=== PATIENT | female | born 1965 | race African-American/Black ===

== ENCOUNTER 2017-09-25 12:17 | Emergency (ER) | payer BC ==
[2017-09-25 12:22] VITALS: BP 138/77; BMI 31.0
--- NOTE | 2017-09-25 13:02 | DR.GENAD ---
HPI - PCP Primary Care Physician: nfd - Complaint/Symptoms Chief Complaint Doctors Comments: Patient presents with complaint of swelling of the right lower extremity of two days durations. She denies recent illness or trauma. Chief Complaint:: Patient c/o swelling to lower ext and feet x2 days. 2+ pitting edema noted to lower ext - Source History Provided: Patient - Mode of Arrival Mode of Arrival: Ambulatory - Timing Onset of Chief Complaint: 09/23/17 PMH - PMH Past Medical History: No Past Surgical History: No - Family History History of Family Medical Conditions: Yes Family Medical History: Cancer, Heart Failure - Social History Does patient currently use any type of tobacco product: No Have you used tobacco products in the last 12 months: No Type of Tobacco Use: None Does any household member use tobacco: No Alcohol Use: None Do you use any recreational Drugs:: No Lives With: Alone Lives Where: Home - infectious screening In the last 2 months have you had wt loss of >10#?: NO Have you had fever, night sweats or hemotysis?: No Have you traveled outside the country in the last 6 months?: No Isolation: Standard ROS - Review of Systems Eyes: No Symptoms Reported ENTM: No Symptoms Reported Respiratoy: No Symptoms Reported Cardiovascular: No Symptoms Reported Gastrointestinal/Abdominal: No Symptoms Reported, Abdominal Pain Neurological: No Symptoms Reported Musculoskeletal: No Symptoms Reported Integumentary: No Symptoms Reported Hematologic/Lymphatic: No Symptoms Reported Endocrine: No Symptoms Reported Psychiatric: No Symptoms Reported All Other Systems: Reviewed and Negative PE - Vital Signs Vitals: Temperature 98.1 F Pulse Rate 84 Respiratory Rate 19 Blood Pressure 138/77 O2 Sat by Pulse Oximetry 99 - General Limitations: No Limitations General Appearance: Alert - Head Head Exam: Normal Inspection, Atraumatic - Eyes Eye exam: Normal Appearance, PERRL, EOMI - ENT ENT Exam: Normal Exam External Ear Exam: Normal External Inspection TM/Canal Exam: Bilateral Normal Nose Exam: Normal Nose Exam Mouth Exam: Normal Inspection Throat Exam: Normal Inspection - Neck Neck Exam: Normal Inspection - Chest Chest Inspection: Normal Inspection - Respiratory Respiratory Exam: Normal Lung Sounds Bilat Respiratory Exam: Bilateral Clear to Auscultation - Cardiovascular Cardiovascular Exam: Regular Rate - Abdominal Exam Abdominal Exam: Normal Inspection Abdominal Tenderness: negative: RUQ, RLQ, LUQ, LLQ, Epigastrium, Suprapubic, Diffuse, Mild, Moderate, Severe, Other - Extremities Extremities Exam: Full ROM, Edema (RLE) - Back Back Exam: Normal Inspection - Neurologic Neurological Exam: Alert, Oriented X3, CN II-XII Intact - Psychiatric Psychiatric Exam: Normal Affect - Skin Skin Exam: Warm, Dry, Intact Course - Reevaluation 1st: Unchanged ROR - Labs Reviewed Laboratory Results Reviewed?: Yes (Elevated D Dimer) Result Diagrams: 09/25/17 13:17 09/25/17 13:17 Laboratory: WBC 8.9 X10^3/uL (3.6-10.0) 09/25/17 13:17 RBC 4.12 X10^6/uL (3.5-5.4) 09/25/17 13:17 Hgb 11.7 g/dL (12.0-16.0) L 09/25/17 13:17 Hct 34.2 % (36.0-47.0) L 09/25/17 13:17 MCV 83.0 fL (80.0-100.0) 09/25/17 13:17 MCH 28.3 pg (27.0-34.0) 09/25/17 13:17 MCHC 34.1 g/dL (33.0-35.0) 09/25/17 13:17 RDW 13.6 % (11.6-16.5) 09/25/17 13:17 Plt Count 274 X10^3/uL (150.0-450.0) 09/25/17 13:17 MPV 9.5 fL (7.4-11.0) 09/25/17 13:17 Neut % (Auto) 56.9 % (42.0-75.0) 09/25/17 13:17 Lymph % (Auto) 25.1 % (21.0-51.0) 09/25/17 13:17 [place] % (Auto) 9.6 % (0.0-13.0) 09/25/17 13:17 Eos % (Auto) 7.3 % (0.9-2.9) H 09/25/17 13:17 Baso % (Auto) 1.1 % (0.2-1.0) H 09/25/17 13:17 Neut # (Auto) 5.1 x10^3/uL (2.2-4.8) H 09/25/17 13:17 Lymph # (Auto) 2.2 X10^3/uL (1.3-2.9) 09/25/17 13:17 [place] # (Auto) 0.9 x10^3/uL (0.3-0.8) H 09/25/17 13:17 Eos # (Auto) 0.7 x10^3/uL (0.0-0.2) H 09/25/17 13:17 Baso # (Auto) 0.1 X10^3/uL (0.0-0.1) 09/25/17 13:17 Absolute Nucleated RBC 0.0 /100WBC 09/25/17 13:17 D-Dimer 1100 ng/mL (0-400) H* 09/25/17 13:17 Sodium 144 mmol/L (136-145) 09/25/17 13:17 Corrected Sodium TNP 09/25/17 13:17 Potassium 4.4 mmol/L (3.5-5.1) 09/25/17 13:17 Chloride 108 mmol/L (98-107) H 09/25/17 13:17 Carbon Dioxide 30.9 mmol/L (21-32) 09/25/17 13:17 BUN 10 mg/dL (7-18) 09/25/17 13:17 Creatinine 0.71 mg/dL (0.55-1.02) 09/25/17 13:17 Est GFR (MDRD) Af Amer > 60 (>60) 09/25/17 13:17 Est GFR (MDRD) Non-Af > 60 (>60) 09/25/17 13:17 Glucose 89 mg/dL (65-99) 09/25/17 13:17 Calcium 8.5 mg/dL (8.5-10.1) 09/25/17 13:17 Corrected Calcium 9.1 mg/dL (8.5-10.1) 09/25/17 13:17 Total Bilirubin 0.50 mg/dL (0.2-1.0) 09/25/17 13:17 AST 16 Units/L (15-37) 09/25/17 13:17 ALT 21 Units/L (12-78) 09/25/17 13:17 Alkaline Phosphatase 89 Units/L (46-116) 09/25/17 13:17 C-Reactive Protein 15.20 mg/L (0-3.0) H 09/25/17 13:17 Total Protein 8.5 g/dL (6.4-8.2) H 09/25/17 13:17 Albumin 3.3 g/dL (3.4-5.0) L 09/25/17 13:17 Globulin 5.2 g/dL (2.5-4.5) H 09/25/17 13:17 Albumin/Globulin Ratio 0.6 Ratio (1.1-2.1) L 09/25/17 13:17 - XRAY XRAY Interpreted by: Radiologist (Doppler ultrasound of the deep veins ro firht lower extremity. Negative no evidence for deep venous thrombosis in the right lower extremity.) - Diagnosis Discharge Problem: Lymph edema - Discharge Plan Condition: Stable - Follow ups/Referrals Follow ups/Referrals: NFD,None [Primary Care Provider] - 3 days - Instructions
[2017-09-25 13:26] LABS: BASOPHILS # (AUTO) 0.1 X10^3/uL (0.0-0.1); BASOPHILS % (AUTO) 1.1 % (0.2-1.0); EOSINOPHILS # (AUTO) 0.7 x10^3/uL (0.0-0.2); EOSINOPHILS % (AUTO) 7.3 % (0.9-2.9); HEMATOCRIT 34.2 % (36.0-47.0); HEMOGLOBIN 11.7 g/dL (12.0-16.0); LYMPHOCYTES # (AUTO) 2.2 X10^3/uL (1.3-2.9); LYMPHOCYTES % (AUTO) 25.1 % (21.0-51.0); MEAN CORPUSCULAR HEMOGLOBIN 28.3 pg (27.0-34.0); MEAN CORPUSCULAR HGB CONC 34.1 g/dL (33.0-35.0); MEAN PLATELET VOLUME 9.5 fL (7.4-11.0); MONOCYTES # (AUTO) 0.9 x10^3/uL (0.3-0.8); MONOCYTES % (AUTO) 9.6 % (0.0-13.0); NEUTROPHILS # (AUTO) 5.1 x10^3/uL (2.2-4.8); NEUTROPHILS % (AUTO) 56.9 % (42.0-75.0); PLATELET COUNT 274 X10^3/uL (150.0-450.0); RED BLOOD COUNT 4.12 X10^6/uL (3.5-5.4); RED CELL DISTRIBUTION WIDTH 13.6 % (11.6-16.5); WHITE BLOOD COUNT 8.9 X10^3/uL (3.6-10.0)
[2017-09-25 13:39] LABS: ALANINE AMINOTRANSFERASE 21 Units/L (12-78); ALBUMIN 3.3 g/dL (3.4-5.0); ALKALINE PHOSPHATASE 89 Units/L (46-116); ASPARTATE AMINO TRANSFERASE 16 Units/L (15-37); BLOOD UREA NITROGEN 10 mg/dL (7-18); CALCIUM 8.5 mg/dL (8.5-10.1); CARBON DIOXIDE 30.9 mmol/L (21-32); CHLORIDE 108 mmol/L (98-107); COR CA(FOR HYPOALB) 9.1 mg/dL (8.5-10.1); CREATININE 0.71 mg/dL (0.55-1.02); SODIUM 144 mmol/L (136-145); TOTAL PROTEIN 8.5 g/dL (6.4-8.2); eGFR BLACK RACES > 60 (>60); eGFR NON BLACK RACES > 60 (>60)
--- NOTE | 2017-09-25 14:54 | VAS ---
History: Swelling in legs and right foot Study: Doppler ultrasound of the deep veins of the right lower extremity Findings: There is compression and augmentation and good color Doppler blood flow and the deep veins of the right lower extremity, evaluated from the common femoral vein to the tibial vein. Impression: Negative, no evidence for deep venous thrombosis in the right lower extremity Reported By:
--- NOTE | 2017-09-25 15:23 | RAD ---
Chest, PA and lateral Indication: Lymphedema. Lower extremity swelling. Comparison: None Findings: The cardiac silhouette is unremarkable. The lungs are essentially clear without focal infil trates or pleural effusion. Impression: No acute chest process. Reported By:
== END 2017-09-25 16:10 | disposition home or self-care (01) ==
LOC: ER 12:17
DX: I89.0 Lymphedema, not elsewhere classified (principal)
CPT/HCPCS: 36415; 71046; 80053; 85025; 85378; 86140; 93971; 99283; 99284